=== PATIENT | male | born 2000 | race Caucasian/White ===

== ENCOUNTER 2024-03-13 19:03 | Emergency (ER) | payer BC, OTHER, SELFPAY ==
--- NOTE | ~2024-03-13 | CT_ITS ---
CTA chest PE protocol Ordering provider: Romel Olea MD History: 23 years Male with . cough, hemoptysis evaluate for PE . Comparison: None. Technique: CT angiogram chest was performed following timed intravenous injection of contrast. Thin s lice axial images and reformatted coronal images were obtained. Three dimensional reformatted images of the chest were also obtained using a [id number] workstation. . Automated exposure control and iterati ve reconstruction technique were employed. The dose-length product was 324.55 mGy-cm. 100 mL Omnipaqu e 350 was given IV. Findings: PULMONARY ARTERIES: No pulmonary embolus. VISUALIZED THORACIC INLET: Normal. MEDIASTINUM: Aorta/coronary arteries: The thoracic aorta is normal. Heart/other: The heart is not enlarged. Lymph nodes: No mediastinal or hilar adenopathy. LUNGS: Small groundglass appearing nodule is seen in the left upper lobe anteriorly measuring 6 mm. Tiny nod ule is also seen in the left upper lobe posteriorly measuring 4 mm. Follow-up CT scan in 6 months is advised. No pulmonary masses. No infiltrates or effusions. No pneumothorax. VISUALIZED UPPER ABDOMEN: the visualized upper abdomen is normal. MUSCULOSKELETAL: Soft tissues: The superficial soft tissues are normal. Bones: Normal spine. IMPRESSION: 1. No pulmonary embolus. 2. No acute cardiopulmonary pathology. 3. Nodules in the left upper lobe. 6 months follow-up low-dose CT is advised. Reviewed, dictated and finalized at location A.
[2024-03-13 19:09] VITALS: BP 141/89; PULSE 66; RESP 18; TEMP 36.4; O2SAT 100
--- NOTE | 2024-03-13 22:46 | ECG_ITS ---
Test Date: 2024-03-13 23:08:17 Measurements Intervals [place] Rate: 48 P: 34 AL: 135 QRS: 98 QRSD: 101 T: 26 QT: 445 QTc: 399 Interpretive Statements SINUS BRADYCARDIA OTHERWISE NORMAL ELECTROCARDIOGRAM No previous ECG available for comparison Electronically Signed On 03-14-2024 07:32:15 CDT by Erlin Talley M.D.
[2024-03-13 23:09] VITALS: PULSE 56
[2024-03-13 23:12] LABS: Basophils Percent Auto 0.6 % (0.2-1.2); Eosinophils Absolute Auto 0.2 K/mm3 (0-0.3); Eosinophils Percent Auto 2.7 % (0-4.4); Hematocrit 40.4 % (42.0-52.0); Hemoglobin 13.6 g/dL (14.0-18.0); Immature Granulocyte Absolute 0.02 K/mm3 (0.00-0.031); Immature Granulocyte Percent A 0.3 % (0-0.5); Lymphocytes Absolute Auto 2.14 K/mm3 (0.9-3.2); Lymphocytes Percent Auto 31.6 % (18.3-44.2); Mean Corpuscular HGB Conc 33.7 g/dl (32-36); Mean Corpuscular Hemoglobin 29.8 pg (26-34); Mean Corpuscular Volume 88.4 fl (80-100); Monocytes Absolute Auto 0.6 K/mm3 (0.1-0.6); Monocytes Percent Auto 8.6 % (2.6-8.5); Neutrophils Absolute Auto 3.8 K/mm3 (1.3-6.7); Neutrophils Percent Auto 56.2 % (45.5-73.1); Platelet Count Result 207 k/mm3 (150-375); Red Blood Count 4.57 M/mm3 (4.6-6.20); Red Cell Distribution Width 12.9 % (11.5-14.5); White Blood Count 6.8 K/mm3 (4.5-10.0)
[2024-03-13 23:26] LABS: Alanine Aminotransferase 24 U/L (6-50); Albumin Level 4.7 g/dL (3.5-5.1); Alkaline Phosphatase 61 U/L (38-126); Anion Gap 9 mmol/L (4-12); Aspartate Amino Transferase 33 U/L (17-59); Bilirubin,Total 0.7 mg/dL (0.2-1.3); Blood Urea Nitrogen 19 mg/dL (9-20); Calcium 9.1 mg/dL (8.4-10.2); Carbon Dioxide 27 mmol/L (22-30); Chloride 102 mmol/L (98-107); Estimated CRCL calculation 83 ml/min; Estimated Glomerular Filt Rate > 60; Glucose 90 mg/dL (65-110); Lactic Acid Reflex 0.6 mmol/L (0.7-2.0); Potassium 3.8 mmol/L (3.4-5.0); Sodium 138 mmol/L (137-145)
[2024-03-13 23:36] LABS: NT Pro B Type Natriuretic Pept 22 pg/mL (19.9-100); Troponin I < 0.012 ng/mL (0.000-0.034)
[2024-03-13 23:45] LABS: INR 1.1; Partial Thromboplastin Time 27.1 Seconds (22.3-36.8); Prothrombin Time 14.2 Seconds (11.1-14.7)
[2024-03-14 00:03] LABS: Procalcitonin 0.1 ng/mL
--- NOTE | 2024-03-14 00:30 | ED.GENADULT ---
HPI - General Adult General Chief complaint: Unspecified Stated complaint: coughing up blood and back pain Time Seen by Provider: 03/13/24 22:27 History of Present Illness HPI narrative: patient is a 23-year-old gentleman presents emergency department with chief complaint of blood tinged sputum patient reports that he has been coughing for a month started having pain in his left low chest/back area the patient states when he was coughing today no sores blood streaks in the sputum the patient denies fever Related Data Allergies Allergy/AdvReac Type Severity Reaction Status Date / Time No Known Allergies Allergy Verified 03/13/24 19:12 Review of Systems Review of Systems: A 10 system review of systems was completed on the patient and is negative except for what is stated in the HPI. Nursing and ancillary documentation was reviewed. Exam Narrative: GENERAL: Well-appearing, well-nourished, and in no acute distress. HEAD: Normocephalic, atraumatic. EYES: PERRLA and EOMI. ENT: Nares clear, no rhinorrhea or epistaxis. Mucous membranes moist. NECK: Supple. CHEST: Clear to auscultation. No respiratory distress. HEART: Regular rate and rhythm. No murmur heard. Normal peripheral pulses. ABDOMEN: Soft, nontender, nondistended, normal active bowel sounds. EXTREMITIES: Normal range of motion. No edema. SKIN: Warm, dry, no rash. NEURO: No focal deficits. Alert and oriented x3. PSYCH: Normal mood and affect. Course Vital Signs Vital signs: Vital Signs Temperature 36.4 C 03/13/24 19:09 Pulse Rate 66 03/13/24 19:09 Respiratory Rate 18 03/13/24 19:09 Blood Pressure 141/89 H 03/13/24 19:09 Pulse Oximetry 100 03/13/24 19:09 Oxygen Delivery Room Air 03/13/24 19:09 Temperature 36.4 C 03/13/24 19:09 Pulse Rate 56 L 03/13/24 23:09 Respiratory Rate 18 03/13/24 19:09 Blood Pressure 141/89 H 03/13/24 19:09 Pulse Oximetry 100 03/13/24 19:09 Oxygen Delivery Room Air 03/13/24 19:09 Medical Decision Making [facility] Narrative Medical decision making narrative: differential diagnosis includes pneumonia, bronchitis, pulmonary embolism, laboratory studies were obtained which were within normal limits EKG showed sinus bradycardia CTA chest showed no evidence of pulmonary embolism there was a pulmonary nodule present the patient was started on doxycycline and given then today patient has follow-up with his primary care provider for repeat low-dose CT in approximately 6 months Vital Signs Vital Signs: Vital Signs Temperature 36.4 C 03/13/24 19:09 Pulse Rate 66 03/13/24 19:09 Respiratory Rate 18 03/13/24 19:09 Blood Pressure 141/89 H 03/13/24 19:09 Pulse Oximetry 100 03/13/24 19:09 Oxygen Delivery Room Air 03/13/24 19:09 Temperature 36.4 C 03/13/24 19:09 Pulse Rate 56 L 03/13/24 23:09 Respiratory Rate 18 03/13/24 19:09 Blood Pressure 141/89 H 03/13/24 19:09 Pulse Oximetry 100 03/13/24 19:09 Oxygen Delivery Room Air 03/13/24 19:09 Lab Data 03/13/24 23:07 03/13/24 23:07 Labs: Lab Results 03/13/24 03/13/24 Range/Units 23:07 23:28 WBC 6.8 (4.5-10.0) K/mm3 RBC 4.57 L (4.6-6.20) M/mm3 Hgb 13.6 L (14.0-18.0) g/dL Hct 40.4 L (42.0-52.0) % MCV 88.4 (80-100) fl MCH 29.8 (26-34) pg MCHC 33.7 (32-36) g/dl RDW 12.9 (11.5-14.5) % Plt Count 207 (150-375) k/mm3 MPV 9.0 (7.4-10.4) fl Immature Gran % (Auto) 0.3 (0-0.5) % Neut % (Auto) 56.2 (45.5-73.1) % Lymph % (Auto) 31.6 (18.3-44.2) % [place] % (Auto) 8.6 H (2.6-8.5) % Eos % (Auto) 2.7 (0-4.4) % Baso % (Auto) 0.6 (0.2-1.2) % Lymph # (Auto) 2.14 (0.9-3.2) K/mm3 [place] # (Auto) 0.6 (0.1-0.6) K/mm3 Eos # (Auto) 0.2 (0-0.3) K/mm3 Baso # (Auto) 0.0 (0.0-0.1) K/mm3 Abs Immat Gran (auto) 0.02 (0.00-0.031) K/mm3 Absolute Neuts (auto) 3.8 (1.3-6.7) K/mm3 Absolute Nucleated RB
[2024-03-14 00:56] VITALS: BP 124/66; PULSE 58; RESP 15; O2SAT 100
== END 2024-03-14 00:57 | disposition home or self-care (01) ==
PROVIDERS: Emergency Provider Emergency Medicine
DX: J40 Bronchitis, not specified as acute or chronic (principal); R91.8 Other nonspecific abnormal finding of lung field; R00.1 Bradycardia, unspecified
CPT/HCPCS: 36415; 71275; 80053; 83605; 83880; 84145; 84484; 85025; 85610; 85730; 93005; 99284; Q9967